=== PATIENT | male | born 1960 | race Caucasian/White ===

== ENCOUNTER 2021-06-28 22:10 | Emergency (ER) | payer MEDICARE, OTHER, SELFPAY ==
[2021-06-28 22:16] VITALS: BP 142/87; BP 161/88; PULSE 109; PULSE 90; PULSE 97; RESP 18; TEMP 36.9; O2SAT 100; O2SAT 96; BMI 28.5
--- NOTE | 2021-06-28 22:38 | ED_ITS ---
HPI - Male Genitourinary General Chief complaint: Urogenital-Male Stated complaint: BALDERAS ISSUES Time Seen by Provider: 06/28/21 22:19 Source: patient Mode of arrival: EMS History of Present Illness HPI Narrative: 60-year-old male brought in via EMS for Balderas catheter difficulties resulting in significant spasming pain in the penis and he denies any accidental holes on the catheter. Patient states that the catheter was placed last Wednesday at [facility] for hematuria and denies any history of prostatic or bladder CA. Patient denies any fever or chills, nausea or vomiting throughout the day and states that he has not seen any urine come out of the catheter since 10:00 a.m. in the morning at which time he decided to decrease his oral intake of fluids. Patient states that he has been leaking around the catheter as well. Related Data Allergies Allergy/AdvReac Type Severity Reaction Status Date / Time No Known Allergies Allergy Unverified 06/28/21 22:19 Review of Systems Review of Systems: Pertinent positives and negatives as stated in HPI 10 point review of systems is otherwise negative. PMFSH Past Medical History Source: nursing notes reviewed Social History Social History Advance Directives: No Advance Directives Information Provided: No Physical Exam Vital Signs: Vital Signs: Last Vital Signs Temp 98.4 F 06/28/21 22:16 Pulse 97 06/28/21 22:16 Resp 18 06/28/21 22:16 BP 161/88 H 06/28/21 22:16 Pulse Ox 100 06/28/21 22:16 Body Mass Index 28.5 VITAL SIGNS: Reviewed. GENERAL: Well developed, well nourished, in no acute distress. HEAD: Normocephalic/atraumatic EYES: PERRLA, EOMI OROPHARYNX: no oral lesions noted, posterior pharynx clear NECK: Supple, no adenopathy LUNGS: Normal breath sounds. No adventitious sounds or accessory muscle use. SpO2<100> CARDIOVASCULAR: Regular rate and rhythm without noted murmurs ABDOMEN: Soft, non-tender, non-distended with bowel sounds. : Balderas catheter place without urine within the tube but obvious leakage around the catheter, bladder scan significant for 179 cc. NEUROLOGIC: Alert and oriented x 4. Strength and sensation to light touch were grossly intact x 4. Course Course Course Narrative: 60-year-old male with prior history of cervical fracture and residual numbness in the perineal area but states that he is never required any use of Balderas catheter for urinary problems. Patient also endorses that he did not want the Balderas catheter to be placed, however the medical staff strongly recommended. After multiple manipulations with the bladder of the catheter and the absence of urine the decision was made to pull the catheter and at this time it was noted that the catheter was blocked with sediment material. The patient's pain immediately resolved and he has had the ability to void since removal of the catheter. Urinalysis will be conducted to ensure no evidence of urinary tract infection. Patient has an appointment with Urology on Wednesday and will follow- up with this service at that time. Review of all investigations negative for acute findings to suggest UTI and although there is hematuria noted RBCs are 30-49 and patient has been able to void on his own and has scheduled appointment follow-up on Wednesday. He is otherwise discharged home in stable condition. MDM - Male Genitourinary Lab Data Labs: Lab Results 06/28/21 Range/Units 22:48 Urine Color YELLOW Urine Appearance CLOUDY Urine pH 6.0 (5.0-8.0) Ur Specific [place] 1.025 (1.005-1.025) Urine Protein 1+ H (NEG-TRACE) MG/DL Urine Glucose (UA) NEG (NEG) MG/DL Urine Ketones NEG (NEG) MG/DL Urine Blood 3+ H (NEG) Urine Nitrite NEG (NEG) Ur Leukocyte Esterase TRACE H (NEG) Urine RBC 30-49 H (0) /HPF Urine WBC 1-4 (0-4) /HPF Ur Squamous Epith Cells TRACE /LPF Amorphous Sediment TRACE /LPF Urine Bacteria 1+ /LPF Hyaline Casts 0-2 /LPF Urine Mucus TRACE /LPF Discharge Plan Discharge Clinical Impression: Balderas catheter problem, Encounter for Balderas catheter removal Patient Disposition: Home, Self-Care Instructions: Balderas Catheter Removal (DC) Additional Instructions: 1. Resume all home medications as prescribed. 2. Keep your scheduled appointment with Urology on Wednesday. 3. Return to the emergency room should you be unable to void within 6 hours. Referrals: Juan Mancini MD [Primary Care Provider] - 2 days
[2021-06-28 22:53] LABS: Appearance Urine CLOUDY; Color Urine YELLOW; Glucose Urine UA NEG (NEG); Leukocyte Esterase Urine TRACE (NEG); Nitrite Urine NEG (NEG); Specific Gravity - Urine 1.025 (1.005-1.025); UACC Culture Trigger YES; Urine Blood 3+ (NEG); Urine Ketones NEG (NEG); Urine Protein 1+ MG/DL (NEG-TRACE)
[2021-06-28 23:01] LABS: Amorphous Sediment Urine TRACE /LPF; Bacteria Urine 1+ /LPF; Hyaline Casts Urine 0-2 /LPF; Mucus Urine TRACE /LPF; RBC Urine 30-49 /HPF (0); Squamous Epithelial Cell Urine TRACE /LPF
[2021-06-28 23:33] VITALS: BP 116/72; PULSE 81; RESP 18; TEMP 36.8; O2SAT 99
--- NOTE | 2021-06-28 23:39 | PC.NURSE ---
Pt alert and oriented x4, calm and cooperative. Thurman catheter removed by MD Rodgers, pt tolerated well. Pt discharged and educated on discharge stating understanding. Pt offered multiple option to go home and stating he can only take an ambulance home. Offered to call sister to pick him up and patient refused. Offered to call cab to take him home and patient refused stating he needs help to get into his house even though he stated he has been driving all week and is normally independent walking around at home.
== END 2021-06-29 00:14 | disposition home or self-care (01) ==
LOC: HO.ED 22:51
PROVIDERS: Emergency Provider Student in an Organized Health Care Education/Training Program; PCP Internal Medicine
DX: T83.098A Other mechanical complication of other urinary catheter, initial encounter (principal); Y84.6 Urinary catheterization as the cause of abnormal reaction of the patient, or of later complication, without mention of misadventure at the time of the procedure; Y92.9 Unspecified place or not applicable
CPT/HCPCS: 51798; 81001; 87086; 99283; 99284

== ENCOUNTER 2024-01-31 14:36 | Emergency (ER) | payer OTHER, SELFPAY ==
--- NOTE | ~2024-01-31 | CT_ITS ---
EXAMINATION: CT ABDOMEN AND PELVIS WITHOUT CONTRAST CLINICAL INFORMATION: Right-sided flank pain COMPARISON: None available. TECHNIQUE: Multidetector volumetric imaging was performed from the superior aspect of the liver through the pubic symphysis. Sagittal and coronal reformatted images were obtained on the technologist's workstation. This CT examination was performed using dose optimization techniques as appropriate, variously including the following: *Automated exposure control *Adjustment of mA and/or kV according to patient size (this includes techniques or standardized protocols for targeted exams where dose is matched to indication/reason for exam; i.e. extremities or head) *Use of iterative reconstruction technique DLP: 634 mGy-cm FINDINGS: LUNG BASES: The visualized lung bases are unremarkable. LIVER, GALLBLADDER, AND BILIARY TREE: The liver is normal in size, shape, and attenuation. No focal hepatic lesion or biliary ductal dilatation is present. The gallbladder is unremarkable with no evidence of radiopaque gallstones, gallbladder wall thickening, or obvious pericholecystic inflammatory changes. PANCREAS: Unremarkable. SPLEEN: Unremarkable. ADRENAL GLANDS: There is a small 1.3 cm nodule arising from the right adrenal gland along with some other small nodules seen in both the right and left adrenal. These measure fat density consistent with benign adenomas and need no additional imaging or follow-up. KIDNEYS AND URETERS: The kidneys are normal in size, shape, and attenuation. There is a 2 mm nonobstructing calculus seen in the upper pole of the right kidney no other calculi are seen. No hydronephrosis or hydroureter seen. No perinephric stranding. A benign right mid renal 2.9 cm Bosniak class I renal cyst is noted which requires no additional imaging or follow up. No solid renal masses are seen. BLADDER: Unremarkable. GASTROINTESTINAL TRACT: The small and large bowel are unremarkable. The appendix is unremarkable. ABDOMINAL WALL: No significant hernia is appreciated. LYMPH NODES: Normal. VASCULAR: Calcific atherosclerotic changes are present in the aorta and iliofemoral vessels. There is no evidence of an abdominal aortic aneurysm. PELVIC VISCERA: Unremarkable. OSSEOUS STRUCTURES: Unremarkable. CT/CT abdomen pelvis wo IV con IMPRESSION: 1. A cause for the patient's right-sided flank pain has not been found. 2. Incidental note made of a 2 mm nonobstructing right upper pole renal calculus, benign adrenal adenomas which need no additional imaging or follow up and a benign Bosniak class I right renal cyst which needs no additional imaging or follow up. Fleischner guidelines were followed.
[2024-01-31 14:47] VITALS: BP 101/63; PULSE 88; RESP 16; TEMP 37; O2SAT 98; BMI 28.5
--- NOTE | 2024-01-31 14:47 | ED.GENADULT ---
HPI - General Adult General Chief complaint: Urogenital-Male Stated complaint: pain r side severe Source: patient Mode of arrival: ambulatory (with a walker) Limitations: no limitations History of Present Illness ED Provider: Wen Cross PA-C HPI narrative: Patient is a 63 year old assigned male at with a history of kidney stones presenting to the emergency department today with right sided flank pain and foul smelling urine. Patient states that he began having right sided flank pain last night and noticed today that his urine was foul smelling. Patient denies any dizziness, lightheadedness, abdominal pain, nausea, vomiting, fever, chills, blurry vision, double vision, loss of vision, chest pain, difficulty breathing, shortness of breath, back pain, night sweats, pain with urination, increased urinary frequency, increased urinary urgency, blood in his urine or stool, syncope or a near syncopal episode, recent trauma or falls, bowel incontinence, bladder incontinence, or any other complaints at this time. Onset (ago): day(s) (1) Location: right (flank pain) Severity: moderate Severity scale (1-10): 6 Quality: aching Pain Consistency: constant Relieving factors: none Exacerbating factors: none Associated symptoms: denies other symptoms Treatments prior to arrival: other (Oxycodone - no relief) Related Data Allergies Allergy/AdvReac Type Severity Reaction Status Date / Time No Known Allergies Allergy Verified 01/31/24 14:50 Review of Systems Constitutional: Constitutional: Reports no additional constitutional complaints, Denies chills, Denies fever(s) and Denies night sweats Eyes: Eyes: Reports no additional eye complaints, Denies blurry vision, Denies change in vision, Denies diplopia, Denies eye discharge, Denies loss of vision and Denies eye pain ENT: Denies dizziness Cardiovascular: Cardiovascular: Reports no additional cardiovascular complaints, Denies chest pain, Denies lightheadedness, Denies Loss of Consciousness and Denies dyspnea Respiratory: Respiratory: Reports no additional respiratory complaints and Denies dyspnea Gastrointestinal: Gastrointestinal: Reports no additional gastrointestinal complaints, Denies abdominal pain, Denies melena, Denies hematochezia, Denies change in bowel habits and Denies change in stool character Genitourinary: Genitourinary: Reports no additional male genitourinary complaints, Denies hematuria, Denies oliguria, Denies difficulty urinating, Denies dysuria, Denies urinary frequency, Denies urinary hesitancy, Denies urinary incontinence and Denies urinary urgency Comments: right flank pain foul smelling urine Musculoskeletal: Musculoskeletal: Reports no additional musculoskeletal complaints, Denies numbness and Denies tingling Neurologic: Denies dizziness, Denies loss of vision, Denies numbness and Denies tingling Psychiatric: Psychiatric: Reports no additional psychiatric complaints Endocrine: Endocrine: Reports no additional endocrine complaints Hematologic/Lymphatic: Hematologic/Lymphatic: Reports no additional hematologic/lymphatic complaints Allergic/Immunologic: Allergic/Immunologic: Reports no additional allergic/immunologic complaints [facility] Past Medical History Attestation statement: The following information was validated with the patient. Source: old records reviewed and nursing notes reviewed Social History Social History Advance Directives: No Advance Directives Information Provided: No Do you have a plan to hurt others: No Plan Physical Exam ED Vital Signs: BMI result Body Mass Index 28.5 Const General: cooperative, no acute distress, alert and awake Nutritional Appearance: well nourished Orientation/consciousness: patient oriented x3 Limitations: no limitations HENMT Head: Yes normal to inspection and Yes atraumatic Ears: hearing grossly normal bilaterally and external ears normal General nose exam: Normal external nose present, no nasal discharge noted and no epistaxis Face and sinus: Yes normal facial exam, No abrasion and No laceration Mouth: Normal oral and palatal mucosa present, no drooling and no muffled voice Eyes General: appearance normal, both eyes and all related structures Periorbital: periorbital findings normal Eyelids: Yes eyelids normal Conjunctivae: conjunctivae normal Pupils: Equal, round and reactive pupils present EOM: EOMs intact bilaterally Neck Neck: Yes normal visual inspection, Yes full ROM and Yes no lymphadenopathy Chest Chest palpation & inspection: normal inspection of the chest Resp Effort & Inspection: normal respiratory effort and able to speak in complete sentences GI Inspection: Yes normal to inspection Neuro General: patient oriented x3 and moves all extremities Cranial nerves: Yes Equal, round and reactive pupils present Cognition (Neuro): normal cognition Extrem General: Yes normal to inspection, Yes full ROM and Yes capillary refill normal Psych Appearance: grossly normal Mental Status: mental status grossly normal Affect: normal affect Attitude: cooperative Thought process: Normal thought process present Thought content: Normal thought content present Insight: Good insight present (Psych) Course Course Course Narrative: RME performed by Wen Cross PA-C. Patient is a 63 year old assigned male at presenting to the emergency department with right flank pain. Patient states over the last 3 days he has had right flank pain. Detailed physical exam and review of systems are deferred to the assembler motor vehicle. Labs, imaging, and swabs ordered. Patient placed back in the waiting room pending room availability and results. Medical Decision Making Medical Decision Making MDM Narrative: Patient is a 63 year old assigned male at with a history of kidney stones presenting to the emergency department today with right flank pain and foul smelling urine. Patient's limited physical exam performed in triage was unremarkable. Patient's blood work was unremarkable. Patient did not provide a urine sample. Patient's CT abdomen/pelvis showed no acute process. Patient left the department without completing treatment. Patient left the department before myself or any of the other emergency department clinicians could explain to or review with the patient; physical exam findings, test results, need or lack there of for additional testing, need or lack there of for a procedure to be performed, need or lack there of for hospital admission / transfer, need or lack there of for prescription medication, treatment options, or a treatment plan. Differential Diagnosis Differential Diagnoses: The differential diagnosis associated with the presentation includes UTI Kidney stone Flank pain Admission/Observation Consideration of admission/observation: Escalation of care including admission/observation considered Patient would have been admitted to the hospital had he completed his work up and it had any findings where hospital admission was appropriate, his clinical presentation warranted hospital admission, had myself or any other emergency architecture department chair had the ability to discuss need or lack there of for hospital admission, and the patient hadn't left the department without completing treatment. Lab Data [facility] Lab Attestation statement: I reviewed the patient's lab results. My interpretation of these results are in the [facility] Rationale portion of this note. 01/31/24 16:33 01/31/24 16:33 Labs: Lab Results 01/31/24 Range/Units 16:33 WBC 7.7 (4.8-10.8) X10*3/uL RBC 4.24 L (4.60-5.80) X10*6/uL Hgb 12.9 L (14.0-18.0) g/dl Hct 38.7 L (42.0-52.0) % MCV 91.3 (80.0-98.0) fL MCH 30.4 (27.0-33.0) pg MCHC 33.3 (31.0-36.0) g/dl RDW 14.6 (11.0-16.0) % Plt Count 238 (160-400) X10*3/uL MPV 9.8 (9.4-12.4) fL Immature Gran % (Auto) 0.3 (0.0-0.4) % Neut % (Auto) 65.5 (45-73) % Lymph % (Auto) 25.1 (20-40) % [place] % (Auto) 6.7 (2-11) % Eos % (Auto) 1.7 (0-4) % Baso % (Auto) 0.7 (0-2) % Lymph # (Auto) 1.9 (1.2-4.9) X10*3/uL [place] # (Auto) 0.5 (0.1-1.2) X10*3/uL Eos # (Auto) 0.1 (0.0-0.4) X10*3/uL Baso # (Auto) 0.1 (0.0-0.2) X10*3/uL Abs Immat Gran (auto) 0.02 (0.00-0.03) X10*3/uL Absolute Neuts (auto) 5.0 (2.0-8.3) x10*3/uL Absolute Nucleated RBC 0.000 (0.0-0.012) X10*3/uL Nucleated RBC % (auto) 0.0 (0.0-0.2) /100WBC Sodium 141 (135-145) mmol/L Potassium 4.1 (3.3-5.1) mmol/L Chloride 107 (96-108) mmol/L Carbon Dioxide 24 (22-29) mmol/L Anion Gap 14 (12-20) BUN 15 (9-16) mg/dL Creatinine 0.86 (0.5-1.4) mg/dL Estim Creat Clear Calc 102.5 Estimated GFR > 60 Random Glucose 89 (60-115) mg/dL Calcium 9.7 (8.4-10.2) mg/dL Magnesium 2.0 (1.6-2.6) mg/dL Total Bilirubin 0.4 (0.0-1.0) mg/dL AST 19 (5-37) U/L ALT 13 (0-40) U/L Alkaline Phosphatase 85 (39-117) U/L Total Protein 7.3 (6.5-8.0) g/dL Albumin 4.1 (3.5-5.0) g/dL Influenza Type A (PCR) NEGATIVE (Negative) Influenza Type B (PCR) NEGATIVE (Negative) RSV RNA Qual (PCR) NEGATIVE (Negative) SARS-CoV-2 RNA (RT-PCR) NEGATIVE (Negative) Independent Interpretation I performed an independent interpretation of an: CT Scan Interpretation: My interpretation is in agreement with the radiologist's impression of this imaging study. EXAMINATION: CT ABDOMEN AND PELVIS WITHOUT CONTRAST CLINICAL INFORMATION: Right-sided flank pain COMPARISON: None available. TECHNIQUE: Multidetector volumetric imaging was performed from the superior aspect of the liver through the pubic symphysis. Sagittal and coronal reformatted images were obtained on the technologist's workstation. This CT examination was performed using dose optimization techniques as appropriate, variously including the following: *Automated exposure control *Adjustment of mA and/or kV according to patient size (this includes techniques or standardized protocols for targeted exams where dose is matched to indication/reason for exam; i.e. extremities or head) *Use of iterative reconstruction technique DLP: 634 mGy-cm FINDINGS: LUNG BASES: The visualized lung bases are unremarkable. LIVER, GALLBLADDER, AND BILIARY TREE: The liver is normal in size, shape, and attenuation. No focal hepatic lesion or biliary ductal dilatation is present. The gallbladder is unremarkable with no evidence of radiopaque gallstones, gallbladder wall thickening, or obvious pericholecystic inflammatory changes. PANCREAS: Unremarkable. SPLEEN: Unremarkable. ADRENAL GLANDS: There is a small 1.3 cm nodule arising from the right adrenal gland along with some other small nodules seen in both the right and left adrenal. These measure fat density consistent with benign adenomas and need no additional imaging or follow-up. KIDNEYS AND URETERS: The kidneys are normal in size, shape, and attenuation. There is a 2 mm nonobstructing calculus seen in the upper pole of the right kidney no other calculi are seen. No hydronephrosis or hydroureter seen. No perinephric stranding. A benign right mid renal 2.9 cm Bosniak class I renal cyst is noted which requires no additional imaging or follow up. No solid renal masses are seen. BLADDER: Unremarkable. GASTROINTESTINAL TRACT: The small and large bowel are unremarkable. The appendix is unremarkable. ABDOMINAL WALL: No significant hernia is appreciated. LYMPH NODES: Normal. VASCULAR: Calcific atherosclerotic changes are present in the aorta and iliofemoral vessels. There is no evidence of an abdominal aortic aneurysm. PELVIC VISCERA: Unremarkable. OSSEOUS STRUCTURES: Unremarkable. CT/CT abdomen pelvis wo IV con IMPRESSION: 1. A cause for the patient's right-sided flank pain has not been found. 2. Incidental note made of a 2 mm nonobstructing right upper pole renal calculus, benign adrenal adenomas which need no additional imaging or follow up and a benign Bosniak class I right renal cyst which needs no additional imaging or follow up. Fleischner guidelines were followed. Dictated By: Boston Robledo MD Signed By: Electronically signed by Boston Robledo MD 01/31/24 3483 Radiology Impression Discussion of test interpretation with radiology: I have reviewed the radiologist's reading. Discharge Plan Discharge Clinical Impression: Acute flank pain, Foul smelling urine Patient Disposition: Left W/O Completing Treatment Discharge Date/Time: 01/31/24 18:02
[2024-01-31 16:39] LABS: MANUAL DIFF FLAG NO
[2024-01-31 16:40] LABS: Basophils Absolute Auto 0.1 X10*3/uL (0.0-0.2); Basophils Percent Auto 0.7 % (0-2); Eosinophils Absolute Auto 0.1 X10*3/uL (0.0-0.4); Eosinophils Percent Auto 1.7 % (0-4); Hematocrit 38.7 % (42.0-52.0); Hemoglobin 12.9 g/dl (14.0-18.0); Imm Gran Abs Auto 0.02 X10*3/uL (0.00-0.03); Imm Gran Pct Auto 0.3 % (0.0-0.4); Lymphocytes Absolute Auto 1.9 X10*3/uL (1.2-4.9); Lymphocytes Percent Auto 25.1 % (20-40); Mean Corpuscular HGB Conc 33.3 g/dl (31.0-36.0); Mean Corpuscular Hemoglobin 30.4 pg (27.0-33.0); Mean Corpuscular Volume 91.3 fL (80.0-98.0); Mean Platelet Volume 9.8 fL (9.4-12.4); Monocytes Absolute Auto 0.5 X10*3/uL (0.1-1.2); Monocytes Percent Auto 6.7 % (2-11); Neutrophils Percent Auto 65.5 % (45-73); Platelet Count 238 X10*3/uL (160-400); Red Blood Count 4.24 X10*6/uL (4.60-5.80); Red Cell Distribution Width 14.6 % (11.0-16.0); White Blood Count 7.7 X10*3/uL (4.8-10.8)
[2024-01-31 16:55] LABS: Alanine Aminotransferase 13 U/L (0-40); Albumin Level 4.1 g/dL (3.5-5.0); Alkaline Phosphatase 85 U/L (39-117); Anion Gap 14 (12-20); Aspartate Amino Transferase 19 U/L (5-37); Bilirubin Total 0.4 mg/dL (0.0-1.0); Blood Urea Nitrogen 15 mg/dL (9-16); Calcium 9.7 mg/dL (8.4-10.2); Carbon Dioxide 24 mmol/L (22-29); Chloride 107 mmol/L (96-108); Creatinine Clr Calc Pharmacy 102.5; Estimated Glomerular Filt Rate > 60; Glucose Random 89 mg/dL (60-115); Potassium 4.1 mmol/L (3.3-5.1); Sodium 141 mmol/L (135-145); Total Protein 7.3 g/dL (6.5-8.0)
[2024-01-31 17:31] LABS: Influenza A PCR NEGATIVE (Negative); Influenza B PCR NEGATIVE (Negative); Resp Syncy Virus RNA Qual PCR NEGATIVE (Negative); SARS COV2 PCR INHOUSE NEGATIVE (Negative)
--- NOTE | 2024-01-31 18:00 | PC.NURSE ---
Attempted to reassess patient-- seen leaving
== END 2024-01-31 18:02 | disposition left against medical advice (07) ==
PROVIDERS: Physician Assistant Medical; Emergency Provider Emergency Medicine; PCP Physician Assistant
DX: R10.2 Pelvic and perineal pain (principal); Z79.899 Other long term (current) drug therapy; Z03.818 Encounter for observation for suspected exposure to other biological agents ruled out
CPT/HCPCS: 0241U; 36415; 74176; 80053; 83735; 85025; 99281; 99283; 99284

== ENCOUNTER 2025-02-14 15:09 | Inpatient (IN) | payer MEDICARE, SELFPAY ==
[2025-02-14] VITALS (16 sets, daily range): BP systolic 71–144; BP diastolic 41–81; PULSE 77–108; RESP 9–18; TEMP 36.4–36.9; O2SAT 96–100; BMI 27.4
--- NOTE | 2025-02-14 | ECG_ITS ---
Test Reason : syncopal, dizzy Blood Pressure : */* mmHG Vent. Rate : 96 BPM Atrial Rate : 96 BPM P-R Int : 172 ms QRS Dur : 146 ms QT Int : 414 ms P-R-T Axes : 27 5 186 degrees QTcB Int : 523 ms Normal sinus rhythm Left bundle branch block Abnormal ECG No previous ECGs available Referred By: Generic ED Physician Electronically Signed By: CARSON CERVANTES
--- NOTE | ~2025-02-14 | CT_ITS ---
CLINICAL HISTORY: SHEREE, new CT abdomen and pelvis without contrast Comparison: 01/31/2024 Findings: Lung bases clear. No acute bony abnormalities. Degenerative change spine and hips. L5-S1 anterior fusion hardware noted. Liver and spleen within normal limits. Pancreas and adrenal glands unremarkable. Gallbladder within normal limits. Small nonobstructing right renal stones. Right renal cyst also noted. No bilateral ureteral stone or hydronephrosis. No evidence for aortic aneurysm. No free fluid or adenopathy in the pelvis. No diverticulitis. Appendix unremarkable. Focal nodule anterolateral right bladder wall. Mass is not excluded, recommend cystoscopy. Impression: Small right anterolateral bladder wall nodule Possible mass, recommend cystoscopy No acute processes This document has been electronically signed by: Alejo De Los Santos MD on 02/14/2025 19:14:31
--- NOTE | ~2025-02-14 | XR_ITS ---
EXAMINATION: XR CHEST CLINICAL INFORMATION: dyspnea COMPARISON: None available. TECHNIQUE: AP view of the chest was obtained. FINDINGS: Patient is right rotated. Mild dextro positioning of the heart. The cardiac, hilar, and mediastinal contours are normal. The lungs are essentially clear bilaterally allowing for rotation. No pneumothorax or effusion. No focal osseous or soft tissue abnormality. XR/XR chest 1V IMPRESSION: 1. Rightward rotation, mildly limiting the examination. 2. No active pulmonary disease. Electronically signed by: Alireza Crowley MD 02/14/2025 04:04 PM EDT
--- NOTE | 2025-02-14 15:35 | ED.WEAKNESS ---
HPI - Weakness General Chief complaint: Weakness Stated complaint: ?Sepsis, UTI, dizzy, syncope, hypotensive, tachy Time Seen by Provider: 02/14/25 15:30 Source: patient and EMS Mode of arrival: ambulatory Limitations: no limitations History of Present Illness ED Provider: HPI Narrative: 64-year-old male I received a phone call from EMS that he had a near syncopal episode and was found to be significantly hypotensive, he was returning from MD appointment for UTI and you antibiotic for UTI that he has not dose yet, patient states because he has been having dark urine and dysuria he decided to decrease his fluid intake so he does not urinate as much, he initially did not want to come to the emergency department via EMS and I did not provide a high-risk refusal and finally they were able to convince the patient to come in. He states that for the past 3 weeks he has urine has been dark he went to see a urologist he has been worked up for a bladder cancer. Related Data Allergies Allergy/AdvReac Type Severity Reaction Status Date / Time No Known Allergies Allergy Verified 02/14/25 15:29 Review of Systems Constitutional: Constitutional: Reports as per HPI [facility] Social History Social History Smoked in Last 30 Days: No Use of substances other than those prescribed or required for medical reasons: No Advance Directives: No Advance Directives Information Provided: No Do you have a plan to hurt others: No Plan Physical Exam Vital Signs: Vital Signs: Last Vital Signs Temp 97.9 F 02/14/25 20:00 Pulse 89 02/14/25 20:00 Resp 18 02/14/25 20:00 BP 116/74 02/14/25 20:00 Pulse Ox 98 02/14/25 20:00 O2 Del Method Room Air 02/14/25 20:00 BMI result Body Mass Index 27.4 Const: Other: Gen: ?Elderly, appears older than stated age HEENT: PERRLA, EOMI, dry oral mucosa Neck: Supple CV: RRR, no obvious murmurs appreciated Resp: ?No wheezing rales rhonchi no stridor moving air well Abd: ?Bowel sounds are present, no tenderness no rebound no rigidity MSK: FROM, strength 5/5 all extremities Skin: Patient has candidal infection in the pannus of the right intra-abdominal fall Neuro: ?Alert and oriented x3, moving upper and lower extremities symmetrically, no obvious facial asymmetry noted Medications Administered Discontinued Medications Generic Name Dose Route Start Last Admin Trade Name Valentino PRN Reason Stop Dose Admin Ceftriaxone Sodium 2 gm 02/14/25 15:42 02/14/25 16:40 Ceftriaxone Sodium 2 Gm Vial IVPUSH 02/14/25 15:43 2 gm ONCE ONE Administration Sodium Chloride 2,830.41 mls @ 2,830.41 mls/hr 02/14/25 15:36 02/14/25 18:16 Ns 30 ml/kg infuse over 1 hr (2830.41 ml) 02/14/25 16:35 Infused IV Infusion .Q1H STA Medical Decision Making Medical Decision Making [facility] Narrative: 15:40 I am concerned that patient is septic, we will start off with 30 cc/kilos IV fluids, antibiotics, he is not febrile, but I will start treating him right of the bat as he is hypotensive he maybe just dehydrated, the sources likely UTI but other considerations as below 17:12 patient's blood pressure is a improving he is blood pressure is 98/53 he does have an SHEREE 2100 patient's blood pressure stable 116/74 CT scan of the abdomen negative will admit patient for SHEREE and UTI Differential Diagnosis Differential Diagnoses: The differential diagnosis associated with the presentation includes UTI, pneumonia, abdominal source of infection, pyelonephritis, prostatitis, cellulitis Admission/Observation Consideration of admission/observation: Escalation of care including admission/observation considered Lab Data [facility] Lab Attestation statement: I reviewed the patient's lab results. 02/14/25 16:06 02/14/25 16:06 Labs: Lab Results 02/14/25 02/14/25 02/14/25 Range/Units 16:06 18:21 18:53 WBC 7.1 (4.8-10.8) X10*3/uL RBC 3.77 L (4.60-5.80) X10*6/uL Hgb 11.4 L (14.0-18.0) g/dl Hct 33.9 L (42.0-52.0) % MCV 89.9 (80.0-98.0) fL MCH 30.2 (27.0-33.0) pg MCHC 33.6 (31.0-36.0) g/dl RDW 12.8 (11.0-16.0) % Plt Count 214 (160-400) X10*3/uL MPV 10.3 (9.4-12.4) fL Immature Gran % (Auto) 0.3 (0.0-0.4) % Neut % (Auto) 74.2 H (45-73) % Lymph % (Auto) 14.8 L (20-40) % [place] % (Auto) 7.2 (2-11) % Eos % (Auto) 2.5 (0-4) % Baso % (Auto) 1.0 (0-2) % Lymph # (Auto) 1.1 L (1.2-4.9) X10*3/uL [place] # (Auto) 0.5 (0.1-1.2) X10*3/uL Eos # (Auto) 0.2 (0.0-0.4) X10*3/uL Baso # (Auto) 0.1 (0.0-0.2) X10*3/uL Abs Immat Gran (auto) 0.02 (0.00-0.03) X10*3/uL Absolute Neuts (auto) 5.3 (2.0-8.3) x10*3/uL Absolute Nucleated RBC 0.000 (0.0-0.012) X10*3/uL Nucleated RBC % (auto) 0.0 (0.0-0.2) /100WBC Sodium 138 (135-145) mmol/L Potassium 4.0 (3.3-5.1) mmol/L Chloride 108 (96-108) mmol/L Carbon Dioxide 23 (22-29) mmol/L Anion Gap 11 L (12-20) BUN 22 H (9-16) mg/dL Creatinine 1.64 H (0.5-1.4) mg/dL Estim Creat Clear Calc 50.0 Estimated GFR 42 Random Glucose 136 H (60-115) mg/dL Lactic Acid 2.2 H* (0.5-2.0) mmol/L Lactic Acid F/U @ 2Hr 1.4 (0.5-2.0) mmol/L Calcium 8.8 D (8.4-10.2) mg/dL Magnesium 1.9 (1.6-2.6) mg/dL Total Bilirubin 0.3 (0.0-1.0) mg/dL AST 16 (5-37) U/L ALT 6 (0-40) U/L Alkaline Phosphatase 88 (39-117) U/L Total Creatine Kinase 13 L (38-174) U/L Total Protein 6.0 L (6.5-8.0) g/dL Albumin 3.4 L (3.5-5.0) g/dL Lipase 27 (8-78) U/L Urine Color Yellow Urine Appearance Cloudy Urine pH 5.5 (5.0-9.0) Ur Specific [place] 1.010 (1.005-1.025) Urine Protein Trace (Neg-Trace) mg/dL Urine Glucose (UA) Negative (Negative) mg/dL Urine Ketones Negative (Negative) mg/dL Urine Blood Moderate (2+) H (Negative) Urine Nitrite Negative (Negative) Ur Leukocyte Esterase Large (3+) H (Negative) Urine RBC 0-2 (0-2) /HPF Urine WBC >50 H (0-5) /HPF Ur Squamous Epith Cells 0-2 (0-2) /HPF Urine Bacteria Trace (None Seen) Hyaline Casts 3-5 (0-2) /LPF Influenza Type A (PCR) NEGATIVE (Negative) Influenza Type B (PCR) NEGATIVE (Negative) RSV RNA Qual (PCR) NEGATIVE (Negative) SARS-CoV-2 RNA (RT-PCR) NEGATIVE (Negative) Independent Interpretation I performed an independent interpretation of an: EKG (96 NSR, left bundle-branch block negative Sgarbossa criteria), Plain X-Ray (Somewhat limited study due to irritation however no obvious consolidations or pneumothorax) and CT Scan Radiology Impression Discussion of test interpretation with radiology: I have reviewed the radiologist's reading. Radiologist Impression: No acute Critical Care Time Critical Care Time Total Critical Care Time: 45 Attestation: Time is exclusive of separately billable procedures. Time includes: direct patient care, patient reassessment, coordination of patient care, interpretation of data (laboratory data, pulse oximetry, arterial blood gases and chest xrays), review of patient's medical records, medical consultation and documentation of patient care. Procedures excluded from critical care time: central intravenous line placement and electrocardiography. Discharge Plan Discharge Clinical Impression: Dehydration, SHEREE (acute kidney injury), Acute UTI Patient Disposition: Admitted As Inpatient Print Language: Sinhala
--- OUTSIDE RECORDS SUMMARY | 2025-02-14 16:10 | XMS_ITS | Patient Health Record ---
Author Organization [facility] [place] Address [address] [place] [address] Care Team Providers Care Interlocking And Signal Mechanic Name Role Phone Live FERNÁNDEZ, Juan Primary Care Provider David Cr Unavailable [phone] Reason For Referral No Information Medications Medication SIG (Take, Route, Frequency, Duration) Notes Start Date End Date Status tiZANidine HCl 4 MG 1 tablet as needed Orally every 8 hrs Active traMADol HCl 50 MG 1 tablet as needed Orally every 6 hrs Active Dantrolene Sodium 50 MG 1 capsule Orally Once a day; Duration: 30 day(s) Active Gabapentin 600 MG 1 tablet Orally Thre e times a day; Duration: 30 day(s) Active oxyCODONE-Acetaminophen 5-325 MG 1 tablet as needed Orally every 6 hrs Active Losartan Potassium 100 MG 1 tablet Orall y Once a day; Duration: 30 day(s) Active Carvedilol 12.5 MG 1 tablet with food Orally Twice a day; Duration: 30 day(s) Active Atorvastatin Calcium 40 MG 1 tablet Oral ly Once a day; Duration: 30 day(s) Active Omeprazole 20 MG 1 capsule Orally Onc e a day; Duration: 30 day(s) Active Zolpidem Tartrate 10 MG 1 tablet at bedt mike as needed Orally Once a day Active Amitriptyline HCl 25 MG 1 tablet at bedt mike Orally Once a day; Duration: 30 day(s) Active Problems Problem Type SNOMED Code ICD Code Onset Dates Problem Status W/U Status Risk Notes Problem Disorder of joint of ankle and/or foot (224894231) Arthritis - Degenerative (719.97) Active confirmed Problem Hammer toe (778409836) Hammer toe (735.4) Active confirmed Problem Congenital pes planus (50156843) Flat Foot, Congenital (754.61) Active confirmed Problem Pain in limb (25551730) Pain in Limb (729.5) Active confirmed Problem Abnormal gait (19636005) Abnormality of gait (781.2) Active confirmed Problem Acquired deformity of ankle AND/OR foot (43839750) Drop foot (736.79) Active confirmed Plan Of Treatment Pending Test Test Name Order Date X ray : Foot, left 2V 01/04/2013 Insurance Providers Payer Name Payer Address Payer Phone Subscriber Number Group Number Insured Name Patient Relationship to Insured Coverage Start Date Coverage End Date Medicare [employer] [address] [place] [address] [id number] Simeon Mendoza Self - patient is the insured Medical (General) History Medical History History ICD Code back, hip, knee pain headaches/migraines broken neck Surgical History Surgery Date(Month/Year) back surgery 2010
--- OUTSIDE RECORDS SUMMARY | 2025-02-14 16:10 | XMS_ITS | Clinical Summary ---
Author Organization [facility] Address [address] [place] [address] Phone Care Team Providers Care Optometry Teacher Name Role Phone Maru Almonte Primary Care Provider [phone] Allergies No known active allergies Medications zolpidem (AMBIEN) 10 mg tablet Take 1 tablet (10 mg total) by mouth at bedtime as needed. 05/18/2014 Active amitriptyline (ELAVIL) 25 mg tablet Take 2 tablets (50 mg total) by mouth at bedtime. 12/06/2014 Active atorvastatin (LIPITOR) 20 mg tablet Take 1 tablet (20 mg total) by mouth 1 (one) time each day. 03/25/2022 Active valsartan (DIOVAN) 160 mg tablet Take 1 tablet (160 mg total) by mouth 1 (one) time each day before dinner. Active oxyCODONE (ROXICODONE) 10 mg immediate release tablet Take 1 tablet (10 mg total) by mouth every 6 (six) hours if needed. 01/16/2016 Active traMADoL (ULTRAM) 50 mg tablet Take 1 tablet (50 mg total) by mouth every 6 (six) hours if needed. 01/16/2016 Active dantrolene (DANTRIUM) 50 mg capsule Take 50 mg by mouth 4 (four) times a day. 09/27/2006 Active tiZANidine (ZANAFLEX) 4 mg capsule Take 0.5 capsules by mouth 4 (four) times a day. 08/11/2010 Active pregabalin (LYRICA) 75 mg capsule Take 1 capsule (75 mg total) by mouth 2 (two) times a day. Active gabapentin (NEURONTIN) 600 mg tablet Take 2 tablets (1,200 mg total) by mouth 3 (three) times a day. Active famotidine (PEPCID) 20 mg tablet Take 1 tablet (20 mg total) by mouth 2 (two) times a day. Active Active Problems No known active problems Encounters Date Type Department Care Team Description 11/29/2024 12:16 PM EDT Anesthesia Event [facility] OR [address] [place] [phone] Geo Kessler MD Pierce, Trudy A, ADAN 11/29/2024 12:00 PM EDT - 11/29/2024 1:30 PM EDT Surgery [facility] OR [address] [place] [phone] Louis Ya MD CYSTOSCOPY TUR BLADDER TUMOR [[id number] (CPT )] 11/29/2024 10:44 AM EDT - 11/29/2024 3:46 PM EDT Hospital Encounter [facility] [place] [address] [place] [phone] Louis Ya MD Malignant neoplasm of bladder, unspecified ([facility] V24, [facility] V28) Discharge Disposition: Home or Self Care from Last 3 Months Immunizations Name Administration Dates Next Due Pfizer SARS-CoV-2 COVID-19, mRNA, LNP-S, preservative free 07/21/2021,11/13/2020 Surgical History Surgery Date Site/Laterality Comments BLADDER SURGERY EYE SURGERY HERNIA REPAIR x 4 COLONOSCOPY KIDNEY STONE SURGERY CYSTOSCOPY SPINAL FUSION ANTERIOR CERVICAL DISCECTOMY W/ FUSION Medical History Medical History Date Comments Hyperlipidemia Hypertension Anxiety Arthritis Hard to intubate GERD (gastroesophageal reflux disease) Chronic kidney disease Kidney stones CHF (congestive heart failure) ([facility] V24, [facility] V28) Cancer ([facility] V24, [facility] V28) Social History Tobacco Use Types Packs/Day Years Used Date Smoking Tobacco: Never Smokeless Tobacco: Never Tobacco Cessation:Counseling Given: Not Answered Alcohol Use Standard Drinks/Week Comments Never 0 (1 standard drink = 0.6 oz pur e alcohol) Interpersonal Safety Answer Date Record ed Physical Abuse 11/29/2024 Verbal Abuse 11/29/2024 Sex and Gender Information Value Date Recorded Sex Assigned at Male 11/27/2024 2:46 PM EDT Legal Sex Male 12:15 PM EST Gender Identity Not on file Sexual Orientation Not on file Obstetrics History Last Filed Vital Signs Vital Sign Reading Time Taken Comments Blood Pressure 120/53 11/29/2024 2:14 PM EDT Pulse 74 11/29/2024 2:14 PM EDT Temperature 36.7 C (98 F) 11/29/2024 2:14 PM EDT Respiratory Rate 18 11/29/2024 2:14 PM EDT Oxygen Saturation 100% 11/29/2024 2:14 PM EDT Inhaled Oxygen Concentration - - Weight 93.4 kg (206 lb) 11/29/2024 11:06 AM EDT Height 182.9 cm (6') 11/29/2024 11:06 AM EDT Body Mass Index 27.94 11/29/2024 11:06 AM EDT Plan of Treatment Health Maintenance Due Date Last Done Comments Zoster Vaccines (1 of 2) 1977 Pneumococcal Vaccine: 50+ Years (2 of 2 - PCV) 02/25/2013 02/26/2012 Cholesterol Screening (Lipid Panel) 06/30/2022 Colorectal Cancer Screening: Colonoscopy 06/30/2022 Depression Screening 06/30/2022 Hepatitis C Screening 06/30/2022 Medicare Annual Wellness Visit 06/30/2022 Social Influencers of Health Screening 06/30/2022 COVID-19 Vaccine ( season) 2024 07/21/2021, 11/27/2020, 11/13/2020 Hypertension/CHF/CAD Annual BMP Blood Test 07/12/2024 Influenza Vaccine (#1) 2025 , 08/16/2019, 04/20/2018, Additional history exists Falls Risk Assessment 11/29/2025 11/29/2024 DTaP,Tdap,and Td Vaccines (3 - Td or Tdap) 01/15/2026 01/16/2016, 07/20/2015 RSV Immunization Adult Patients (1 - 1-dose 75+ series) 2033 HIB Vaccines Aged Out No longer eligi ble based on patient's age to complete this topic HPV Vaccines Aged Out No longer eligi ble based on patient's age to complete this topic Hepatitis A Vaccines Aged Out No long er eligible based on patient's age to complete this topic Hepatitis B Vaccines Aged Out No long er eligible based on patient's age to complete this topic IPV Vaccines Aged Out No longer eligi ble based on patient's age to complete this topic MMR Vaccines Aged Out No longer eligi ble based on patient's age to complete this topic Meningococcal ACWY Vaccine Aged Out N o longer eligible based on patient's age to complete this topic Meningococcal B Vaccine Aged Out No l onger eligible based on patient's age to complete this topic RSV Immunization Patients Under 20 months Aged Out No longer eligible based on patient's age to complete this topic Varicella Vaccines Aged Out No longer eligible based on patient's age to complete this topic Procedures Procedure Name Priority Date/Time Associated Diagnosis Comments TISSUE EXAM Routine 11/29/2024 12:43 PM EDT Malignant neoplasm of bladder, unspecified (CMS/HCC V24, CMS/HCC V28) TH AN LMA(NO CHARGE) Routine 11/29/2024 12:33 PM EDT [place] CYSTO W FULGURATION/RESECTI ON SMALL BLADDER TUMOR 0.5-2.0CM 11/29/2024 12:13 PM EDT Malignant neoplasm of bladder, unspecified (CMS/HCC V24, CMS/HCC V28) ECG 12-LEAD Routine 11/29/2024 11:57 AM EDT from Last 3 Months Results * Tissue exam (11/29/2024 12:43 PM EDT) Final Diagnosis A. Urinary Bladder, posterior wall-biopsy: -ACUTE AND CHRONIC CYSTITIS, EXTENSIVELY DENUDED B. Urinary Bladder, tumor-transureth ral resection: -PAPILLARY UROTHELIAL CARCINOMA, LOW GRADE -Invasion: Not identified -No muscularis propria, (Detrusor muscle) present for evaluation -Lymphovascular invasion: Not identified -Urothelial carcinoma in situ: Not identified C. Urinary Bladder, deep bx-biopsy: -UROTHELIAL FRAGMENT DISTORTED BY DIATHERMY ARTIFACT, NOT INTERPRETABLE -Additional tissue sampling is recommended, as clinically indicated 12/01/2024 8:05 AM [facility] Comment A) While no neoplasm is observed in this specimen, denudation may sometimes reflect cases of CIS where the neoplastic cells have shed as a result of discohesion. Additional tissue and/or cytology sampling may be helpful, if clinically indicated. 12/01/2024 8:05 AM [facility] Gross Description A. Urinary Bladder, posterior wall: Labeled posterior bladder ID 1 . Received in formalin, with Telfa is a soft, santamaria, thin, 0.15 cm in greatest diameter tissue fragment which is wrapped in paper and submitted in toto in one cassette, one piece, multiple levels. B. Urinary Bladder, tumor: Labeled bladder t ID 2 . Received in formalin, some of which is on Telfa, is a 1.2 x 0.9 x 0.15 cm aggregate of soft to friable, santamaria-pink to red minimally cauterized tissue fragments, which are wrapped in paper and submitted in toto in one cassette, multiple pieces. C. Urinary Bladder, deep bx: Labeled deep bladder ID 3 . Received in formalin, with Telfa, is a soft, santamaria, thin, 0.2 cm in greatest diameter tissue fragment which is wrapped in paper and submitted in toto in one cassette, one piece, multiple levels. TS 12/01/2024 8:05 AM [facility] Disclaimer Unless otherwise specified, all tissue is 10% NB formalin fixed and paraffin embedded. 12/01/2024 8:05 AM [facility] Tissue Urinary bladder structure / Unknown 11/29/2024 12:43 PM EDT 11/29/2024 1:50 PM EDT Tissue specimen (specimen) Urinary bladder structure / Unknown 11/29/2024 12:59 PM EDT 11/29/2024 1:50 PM EDT Tissue specimen (specimen) Urinary bladder structure / Unknown 11/29/2024 1:05 PM EDT 11/29/2024 1:50 PM EDT Louis Ya MD LAB PATHOLOGY ORDERABLES Final R esult SHANNA KNOWLES [place] ([facility] [address] [place] [address], * TH AN LMA(NO CHARGE) (11/29/2024 12:33 PM EDT) Narrative Marilee Coelho CRNA - 11/29/2024 12:33 PM EDT Marilee Coelho CRNA 11/29/2024 12:35 PM General Information and Staff Patient location during procedure: OR Performed by: Marilee Coelho CRNA Authorized by: Geo Kessler MD Intubation Additional Comments Gauze bite block. Placement required flexing of tip via digital manipulation. Airway not difficult Urgency: elective Final Airway Details LMA Size: 4 LMA Type: LMA Seal Pressure: Final airway type: LMA Indications and Patient Condition Indications for airway management: anesthesia Spontaneous ventilation: present Preoxygenated: yes Soft Tissue Damage: No Dentition Unchanged: Yes Patient position: hob slightly elevated. Head / pt comfort. Mask difficulty assessment: 1 - vent by mask us Geo Kessler MD ANESTHESIA ORDERABLES Final Re sult * EKG 12 lead (11/29/2024 11:57 AM EDT) Ventricular Rate ECG 79 BPM GEMUSE Atrial Rate 79 BPM GEMUSE P-R Interval 184 ms GEMUSE QRS Duration 158 ms GEMUSE Q-T Interval 414 ms GEMUSE QTc 474 ms GEMUSE P Wave Martinez 32 degrees GEMUSE R Martinez 1 degrees GEMUSE T Martinez 163 degrees GEMUSE ECG Interpretation Normal sinus rhythm Left bundle branch block Abnormal ECG When compared with ECG of 17-SEP-2021 09:53, No significant change was found Confirmed by Hermann ROMERO JAMES ([id number]) on 11/29/2024 4:48:32 PM GEMUSE 11/29/2024 11:5 7 AM EDT 11/29/2024 4:48 PM EDT us Louis Ya MD ECG ORDERABLES Final Result Performing Organization Address City/[facility]/ZIP Co de Phone Number GEMUSE from Last 3 Months Insurance [employer] MED[employer]ARE [employer]AGE Care Teams Optometry Teacher Relationship Specialty Start Date End Date Maru Almonte PA [address] [place] [phone] PCP - General 11/27/24
[2025-02-14 16:15] LABS: MANUAL DIFF FLAG NO
[2025-02-14 16:25] LABS: Hematocrit 33.9 % (42.0-52.0); Hemoglobin 11.4 g/dl (14.0-18.0); Imm Gran Abs Auto 0.02 X10*3/uL (0.00-0.03); Imm Gran Pct Auto 0.3 % (0.0-0.4); Lymphocytes Absolute Auto 1.1 X10*3/uL (1.2-4.9); Mean Corpuscular HGB Conc 33.6 g/dl (31.0-36.0); Mean Corpuscular Hemoglobin 30.2 pg (27.0-33.0); Mean Corpuscular Volume 89.9 fL (80.0-98.0); NRBC Abs Auto 0.000 X10*3/uL (0.0-0.012); NRBC Pct Auto 0.0 /100WBC (0.0-0.2); Platelet Count 214 X10*3/uL (160-400); Red Blood Count 3.77 X10*6/uL (4.60-5.80); White Blood Count 7.1 X10*3/uL (4.8-10.8)
[2025-02-14] MEDS: SODIUM CHLORIDE 2830.41 ML IV (16:32)
[2025-02-14 16:34] LABS: Alanine Aminotransferase 6 U/L (0-40); Albumin Level 3.4 g/dL (3.5-5.0); Alkaline Phosphatase 88 U/L (39-117); Anion Gap 11 (12-20); Aspartate Amino Transferase 16 U/L (5-37); Blood Urea Nitrogen 22 mg/dL (9-16); Calcium 8.8 mg/dL (8.4-10.2); Carbon Dioxide 23 mmol/L (22-29); Chloride 108 mmol/L (96-108); Creatinine Clr Calc Pharmacy 50.0; Estimated Glomerular Filt Rate 42; Lipase 27 U/L (8-78); Magnesium 1.9 mg/dL (1.6-2.6); Potassium 4.0 mmol/L (3.3-5.1); Sodium 138 mmol/L (135-145); Total Protein 6.0 g/dL (6.5-8.0)
--- NOTE | 2025-02-14 16:45 | PC.NURSE ---
Pt arrives to ED as possible sepsis alert. Pt A&Ox3, afebrile, with noted hypotension, heart rate WNL. Blood cultures not initially entered by provider. Verbal review of orders with provider for clarification; at this time verbal orders received to enter blood culture orders. First set of cultures sent down and Abx given immediately after. Second blood culture set to be drawn and sent for processing.
[2025-02-14 17:06] LABS: Resp Syncy Virus RNA Qual PCR NEGATIVE (Negative); SARS COV2 PCR INHOUSE NEGATIVE (Negative)
[2025-02-14 18:14] LABS: Reflex Lactate? Lactic Acid Added
--- NOTE | 2025-02-14 18:35 | MHC.EDTECH ---
attempted to do repeat Lactic patient is not in the room at the moment
[2025-02-14 18:51] LABS: Appearance Urine Cloudy; Glucose Urine UA Negative (Negative); PH 5.5 (5.0-9.0); Specific Gravity - Urine 1.010 (1.005-1.025); UMIC TRIGGER UACC YES
--- NOTE | 2025-02-14 19:04 | PC.NURSE ---
Sepsis worksheet completed and submitted to community relations coordinator.
[2025-02-14 19:15] LABS: ~Lactic Acid-LAB USE ONLY 1.4 mmol/L (0.5-2.0)
--- NOTE | 2025-02-14 19:22 | PC.NURSE ---
this rn assumed care of pt, pt resting in stretcher, no acute distress noted
[2025-02-14 20:47] LABS: UACC Culture Trigger YES
--- NOTE | 2025-02-14 22:06 | PM.IMHP ---
History of Present Illness Date of Service: 02/14/25 Chief Complaint: weakness This is a 64-year-old male with pertinent history of hypertension, BPH, gastroesophageal reflux disease, bladder mass, peripheral neuropathy who was brought to the emergency department for evaluation of hypotension and weakness. Patient was returning from his MD appointment for evaluation of UTI. He hasnt began outpatient treatment yet for UTI. He was found to be weak and hypotensive and he was called in to the ER. Patient does endorse dysuria and change in color of urine over the last few days. He decreased his fluid intake due to dysuria. No fever, chills, nausea or vomiting. Patient does have a known bladder mass and follows outpatient with the Urology. No chest pain, palpitations, shortness of breath, changes in bowel habits. In the emergency department, patient was found to have SHEREE with creatinine 1.64. Lactic acid 2.2. Urine concerning for UTI. Review of Systems Constitutional: Constitutional: Reports fatigue, Reports malaise, Reports poor appetite and Reports weakness Cardiovascular: Cardiovascular: Reports no additional cardiovascular complaints Respiratory: Respiratory: Reports no additional respiratory complaints Gastrointestinal: Gastrointestinal: Reports no additional gastrointestinal complaints Genitourinary: Genitourinary: Reports dysuria Neurologic: Reports weakness Endocrine: Endocrine: Reports fatigue PMFSH Social History Smoked in Last 30 Days: No Use of substances other than those prescribed or required for medical reasons: No Advance Directives: No Advance Directives Information Provided: No Do you have a plan to hurt others: No Plan Meds Allergies Allergy/AdvReac Type Severity Reaction Status Date / Time No Known Allergies Allergy Verified 02/14/25 15:29 Home Medications ?Medication ?Instructions ?Recorded ?Confirmed ?Last Taken ?Type amitriptyline 25 mg tablet 50 mg PO BEDTIME 02/14/25 02/14/25 02/13/25 History dantrolene 50 mg capsule 50 mg PO QID 02/14/25 02/14/25 02/14/25 History famotidine 40 mg tablet 40 mg PO BID 02/14/25 02/14/25 02/14/25 History gabapentin 600 mg tablet 1,200 mg PO TID 02/14/25 02/14/25 02/14/25 History oxycodone 10 mg tablet 10 mg PO TID PRN Pain 02/14/25 02/14/25 Unknown History pregabalin 75 mg capsule 75 mg PO BID 02/14/25 02/14/25 02/14/25 History sumatriptan succinate 100 mg tablet 100 mg PO DAILY PRN migraine 02/14/25 02/14/25 Unknown History tamsulosin 0.4 mg capsule 0.4 mg PO BEDTIME 02/14/25 02/14/25 02/13/25 History tizanidine 4 mg tablet 6 mg PO QID 02/14/25 02/14/25 02/14/25 History tramadol 50 mg tablet 50 mg PO QID PRN Pain 02/14/25 02/14/25 Unknown History valsartan 160 mg tablet 160 mg PO DAILY 02/14/25 02/14/25 02/14/25 History zolpidem 10 mg tablet 10 mg PO BEDTIME 02/14/25 02/14/25 02/13/25 History Physical Exam Vital Signs and Narrative: Vital Signs: Last Vital Signs Temp 97.9 F 02/14/25 20:00 Pulse 77 02/14/25 21:24 Resp 10 L 02/14/25 21:24 BP 134/64 02/14/25 21:24 Pulse Ox 98 02/14/25 21:24 O2 Del Method Room Air 02/14/25 20:08 BMI result Body Mass Index 27.4 Middle-aged male lying in bed in no distress Neck supple, no JVD Regular rate and rhythm, S1-S2 heard Regular breath sounds bilaterally, no wheezing or crackles appreciated Abdomen soft nontender, no guarding, no rigidity Patient is awake, alert and oriented to self, place, time and person ; no focal motor deficit Psych: Normal mood Candidal infection in the abdominal fold Results Labs 02/14/25 16:06 02/14/25 16:06 Labs: Laboratory Results - last 24 hr 02/14/25 02/14/25 02/14/25 16:06 18:21 18:53 MCV 89.9 MCH 30.2 MCHC 33.6 RDW 12.8 Plt Count 214 MPV 10.3 Immature Gran % (Auto) 0.3 Neut % (Auto) 74.2 H Lymph % (Auto) 14.8 L [place] % (Auto) 7.2 Eos % (Auto) 2.5 Baso % (Auto) 1.0 Lymph # (Auto) 1.1 L [place] # (Auto) 0.5 Eos # (Auto) 0.2 Baso # (Auto) 0.1 Abs Immat Gran (auto) 0.02 Absolute Neuts (auto) 5.3 Absolute Nucleated RBC 0.000 Nucleated RBC % (auto) 0.0 Anion Gap 11 L Estim Creat Clear Calc 50.0 Estimated GFR 42 Random Glucose 136 H Lactic Acid 2.2 H* Lactic Acid F/U @ 2Hr 1.4 Calcium 8.8 D Magnesium 1.9 Total Bilirubin 0.3 AST 16 ALT 6 Alkaline Phosphatase 88 Total Creatine Kinase 13 L Total Protein 6.0 L Albumin 3.4 L Lipase 27 Urine Color Yellow Urine Appearance Cloudy Urine pH 5.5 Ur Specific [place] 1.010 Urine Protein Trace Urine Glucose (UA) Negative Urine Ketones Negative Urine Blood Moderate (2+) H Urine Nitrite Negative Ur Leukocyte Esterase Large (3+) H Urine RBC 0-2 Urine WBC >50 H Ur Squamous Epith Cells 0-2 Urine Bacteria Trace Hyaline Casts 3-5 Influenza Type A (PCR) NEGATIVE Influenza Type B (PCR) NEGATIVE RSV RNA Qual (PCR) NEGATIVE SARS-CoV-2 RNA (RT-PCR) NEGATIVE Imaging Radiologist's Impressions: Impressions Chest X-Ray 02/14/25 14:44 IMPRESSION: 1. Rightward rotation, mildly limiting the examination. 2. No active pulmonary disease. Electronically signed by: Alireza Crowley MD 02/14/2025 04:04 PM EDT RP Assessment and Plan (1) Acute UTI: Status: Acute (2) SHEREE (acute kidney injury): Status: Acute Plan This is a 64-year-old male with pertinent history of hypertension, BPH, gastroesophageal reflux disease, bladder mass, peripheral neuropathy who was brought to the emergency department for evaluation of hypotension and weakness. #. Acute kidney injury stage I: Monitor creatinine urine output with crystalloid resuscitation. Avoid nephrotoxins #. Acute UTI: Initiating IV ceftriaxone while in the hospital. Follow urine culture #. Intertrigo in the abdominal folds: Ordered nystatin topically #. Hypertension: Hold valsartan in the setting of SHEREE #. Gastroesophageal reflux disease: On PPI #. Lactic acidosis due to hypoperfusion, not severe sepsis #. Bladder mass: Patient follows outpatient with urologist and is currently being worked up for bladder cancer Med rec pending DVT prophylaxis: Lovenox DNR/DNI. Discussed with patient at bedside Admit as inpatient and will require two night minimum hospital stay for close monitoring of kidney function, IV antibiotics (as above), which is not possible in a lesser acute setting. Quality Stroke Does the patient have a stroke diagnosis?: No VTE Prior VTE?: No VTE Risk Level:: Medical - moderate - high VTE Device Contraindication: N/A - Device Ordered VTE Drug Contraindication: N/A - Med Ordered
--- NOTE | 2025-02-14 22:09 | PHA.MEDREC ---
Addendum entered by Rodolfo Childs [facility] 02/14/25 22:52: MED REC CHECKED BY [facility] Original Note: Pharmacy Consult ? Medication Reconciliation Pharmacy has completed the medication reconciliation. Spoke to patient to confirm med list. Patient was able to say yes or no when asked on medications. Patient states he no longer takes Cephalexin 500 mg. Patient had all his morning medications today.
--- NOTE | 2025-02-14 22:30 | PC.NURSE ---
pt medicated per sep, pharmacy contacted to bring up nystatin powder
[2025-02-14] MEDS: oxyCODONE HCl Immed Release 5 MG TABLET 10 MG PO (22:52)
--- NOTE | 2025-02-14 22:54 | PC.NURSE ---
pt medicated per sep, nystatin placed into pt specific bin by this rn
[2025-02-15 00:25] VITALS: BP 148/73; PULSE 83; RESP 16; TEMP 36.8; O2SAT 96
[2025-02-15 05:07] LABS: MANUAL DIFF FLAG NO
[2025-02-15 05:11] LABS: Hematocrit 32.9 % (42.0-52.0); Hemoglobin 11.3 g/dl (14.0-18.0); Imm Gran Abs Auto 0.01 X10*3/uL (0.00-0.03); Imm Gran Pct Auto 0.2 % (0.0-0.4); Lymphocytes Absolute Auto 1.3 X10*3/uL (1.2-4.9); Mean Corpuscular HGB Conc 34.3 g/dl (31.0-36.0); Mean Corpuscular Hemoglobin 30.2 pg (27.0-33.0); Mean Corpuscular Volume 88.0 fL (80.0-98.0); NRBC Abs Auto 0.000 X10*3/uL (0.0-0.012); NRBC Pct Auto 0.0 /100WBC (0.0-0.2); Platelet Count 205 X10*3/uL (160-400); Red Blood Count 3.74 X10*6/uL (4.60-5.80); White Blood Count 6.2 X10*3/uL (4.8-10.8)
[2025-02-15 05:26] LABS: Anion Gap 12 (12-20); Blood Urea Nitrogen 20 mg/dL (9-16); Calcium 8.5 mg/dL (8.4-10.2); Carbon Dioxide 21 mmol/L (22-29); Chloride 112 mmol/L (96-108); Creatinine Clr Calc Pharmacy 68.4; Estimated Glomerular Filt Rate > 60; Potassium 3.7 mmol/L (3.3-5.1); Sodium 141 mmol/L (135-145)
[2025-02-15 06:13] VITALS: BP 126/71; PULSE 95; RESP 11; TEMP 37; O2SAT 96
--- NOTE | 2025-02-15 06:29 | PC.NURSE ---
pt medicated per MAR
[2025-02-15] MEDS: 0.9 % Sodium Chloride Flush 3 ML SYRINGE IVFLUSH (08:01)
--- NOTE | 2025-02-15 08:03 | PC.NURSE ---
patient a&ox3, rr equal/non labored, lungs duminished clear. playground monitor sinus tach on monitor. pt has walker at baseline at home. pt has nystatin ointment to rt groin area- pt stating to home caregiver that hes not getting any of his meds in the hospital and he wishes to discharge to home because he hates being in the hospital. call mensah within reach, plan of care ongoing
--- NOTE | 2025-02-15 09:36 | P.DS_ITS ---
DS: Providers Provider Date of Service: 02/15/25 Date of admission: 02/14/25 21:44 Date of discharge: 02/15/25 Primary care physician: Unknown Physician DS: Diagnosis Discharge Diagnosis (1) Acute UTI: Status: Acute (2) SHEREE (acute kidney injury): Status: Acute DS: Summary Hospital Course Hospital Course: from initial hpi: 64-year-old male with pertinent history of hypertension, BPH, gastroesophageal reflux disease, bladder mass, peripheral neuropathy who was brought to the emergency department for evaluation of hypotension and weakness. Patient was returning from his MD appointment for evaluation of UTI. He hasnt began outpatient treatment yet for UTI. He was found to be weak and hypotensive and he was called in to the ER. Patient does endorse dysuria and change in color of urine over the last few days. He decreased his fluid intake due to dysuria. No fever, chills, nausea or vomiting. Patient does have a known bladder mass and follows outpatient with the Urology. No chest pain, palpitations, shortness of breath, changes in bowel habits. In the emergency department, patient was found to have SHEREE with creatinine 1.64. Lactic acid 2.2. Urine concerning for UTI. hospital course: Patient was admitted for acute kidney injury due to dehydration and hypotension. Valsartan was held, was given IV fluids and creatinine significantly improved. Hypotension resolved with IV fluids. Blood pressure is 126/71 at time of discharge. We will continue to hold valsartan for now but may need to restart if blood pressures increase at home. For acute UTI was treated with ceftriaxon e. Urine culture still pending. Ideally patient would stay inpatient on IV antibiotics with blood pressure monitoring until cultures resulted, however, patient is not interested in staying in the hospital would like to be given empiric treatment and follow up with PCP. For his bladder mass he will follow up with Urology. For acute lactic acidosis this was due to dehydration and hypotension, not sepsis. Time Attestation Discharge Coordination Time (in mins): 32 Quality: Safe Use of Opioids Does Pt have an Active Cancer Diagnosis on the Problem List?: Yes Opioid Measure Date for [facility] Report: 01/16/25 Opioid Measure Time for [facility] Report: 09:36 Quality: Stroke Does the patient have a stroke diagnosis?: No Physical Exam Vital Signs: Vital Signs: Last Vital Signs Temp 98.6 F 02/15/25 06:13 Pulse 95 02/15/25 06:13 Resp 11 L 02/15/25 06:13 BP 126/71 02/15/25 06:13 Pulse Ox 96 02/15/25 06:13 O2 Del Method Room Air 02/15/25 06:13 BMI result Body Mass Index 27.4 General: AO X 3, no acute distress Resp: CTA bilateral, no accessory muscles used CVS: S1,S2,RRR GI: soft, non tender, non distended Neuro: motor grossly intact, alert Psych: appropriate affect, appropriate insight DS: Data Data Completed and Pending Labs on day of discharge: Laboratory Results - last 24 hr 02/14/25 02/14/25 02/14/25 16:06 18:21 18:53 WBC 7.1 RBC 3.77 L Hgb 11.4 L Hct 33.9 L MCV 89.9 MCH 30.2 MCHC 33.6 RDW 12.8 Plt Count 214 MPV 10.3 Immature Gran % (Auto) 0.3 Neut % (Auto) 74.2 H Lymph % (Auto) 14.8 L [place] % (Auto) 7.2 Eos % (Auto) 2.5 Baso % (Auto) 1.0 Lymph # (Auto) 1.1 L [place] # (Auto) 0.5 Eos # (Auto) 0.2 Baso # (Auto) 0.1 Abs Immat Gran (auto) 0.02 Absolute Neuts (auto) 5.3 Absolute Nucleated RBC 0.000 Nucleated RBC % (auto) 0.0 Sodium 138 Potassium 4.0 Chloride 108 Carbon Dioxide 23 Anion Gap 11 L BUN 22 H Creatinine 1.64 H Estim Creat Clear Calc 50.0 Estimated GFR 42 Random Glucose 136 H Lactic Acid 2.2 H* Lactic Acid F/U @ 2Hr 1.4 Calcium 8.8 D Magnesium 1.9 Total Bilirubin 0.3 AST 16 ALT 6 Alkaline Phosphatase 88 Total Creatine Kinase 13 L Total Protein 6.0 L Albumin 3.4 L Lipase 27 Urine Color Yellow Urine Appearance Cloudy Urine pH 5.5 Ur Specific [place] 1.010 Urine Protein Trace Urine Glucose (UA) Negative Urine Ketones Negative Urine Blood Moderate (2+) H Urine Nitrite Negative Ur Leukocyte Esterase Large (3+) H Urine RBC 0-2 Urine WBC >50 H Ur Squamous Epith Cells 0-2 Urine Bacteria Trace Hyaline Casts 3-5 Influenza Type A (PCR) NEGATIVE Influenza Type B (PCR) NEGATIVE RSV RNA Qual (PCR) NEGATIVE SARS-CoV-2 RNA (RT-PCR) NEGATIVE 02/15/25 04:29 WBC 6.2 RBC 3.74 L Hgb 11.3 L Hct 32.9 L MCV 88.0 MCH 30.2 MCHC 34.3 RDW 12.6 Plt Count 205 MPV 10.4 Immature Gran % (Auto) 0.2 Neut % (Auto) 68.8 Lymph % (Auto) 21.5 [place] % (Auto) 5.9 Eos % (Auto) 3.0 Baso % (Auto) 0.6 Lymph # (Auto) 1.3 [place] # (Auto) 0.4 Eos # (Auto) 0.2 Baso # (Auto) 0.0 Abs Immat Gran (auto) 0.01 Absolute Neuts (auto) 4.3 Absolute Nucleated RBC 0.000 Nucleated RBC % (auto) 0.0 Sodium 141 Potassium 3.7 Chloride 112 H Carbon Dioxide 21 L Anion Gap 12 BUN 20 H Creatinine 1.20 Estim Creat Clear Calc 68.4 Estimated GFR > 60 Random Glucose 83 Lactic Acid Lactic Acid F/U @ 2Hr Calcium 8.5 Magnesium Total Bilirubin AST ALT Alkaline Phosphatase Total Creatine Kinase Total Protein Albumin Lipase Urine Color Urine Appearance Urine pH Ur Specific [place] Urine Protein Urine Glucose (UA) Urine Ketones Urine Blood Urine Nitrite Ur Leukocyte Esterase Urine RBC Urine WBC Ur Squamous Epith Cells Urine Bacteria Hyaline Casts Influenza Type A (PCR) Influenza Type B (PCR) RSV RNA Qual (PCR) SARS-CoV-2 RNA (RT-PCR) Discharge Plan Discharge Anticipated Discharge Date/Time: 02/15/25 09:33 Patient Disposition: Home, Self-Care Discharge Diagnosis: sheree, uti Referrals: Physician,Unknown J [Primary Care Provider, Medical] - 1 Week Discharge Medications: New cefuroxime axetil 500 mg tablet 500 mg PO BID Qty: 10 0RF Continued gabapentin 600 mg tablet 1,200 mg PO TID tizanidine 4 mg tablet 6 mg PO QID sumatriptan succinate 100 mg tablet 100 mg PO DAILY PRN (Reason: migraine) famotidine 40 mg tablet 40 mg PO BID dantrolene 50 mg capsule 50 mg PO QID tramadol 50 mg tablet 50 mg PO QID PRN (Reason: Pain) amitriptyline 25 mg tablet 50 mg PO BEDTIME tamsulosin 0.4 mg capsule 0.4 mg PO BEDTIME zolpidem 10 mg tablet 10 mg PO BEDTIME pregabalin 75 mg capsule 75 mg PO BID oxycodone 10 mg tablet 10 mg PO TID PRN (Reason: Pain) Discontinued valsartan 160 mg tablet 160 mg PO DAILY Discharge Orders: Discharge Order (Routine); Ordered 02/15/25 Ordered By: Georges Price Diet: Advance to usual diet Activity on Discharge: As tolerated Stand Alone Forms: Patient Portal Discharge page Print Language: Kyr[place] Care Plan Goals: recovery Health Concerns: uti, low bp, sheree Plan of Treatment: stop valsartan for now because of low blood pressures, may need to restart in future if blood pressure consistently high 5 more days of ceftin, follow up urine culture, may need to change antibiotics if not sensitive Assessment: see above
[2025-02-15] MEDS: oxyCODONE HCl Immed Release 5 MG TABLET 10 MG PO (10:15)
--- NOTE | 2025-02-15 10:16 | PC.NURSE ---
oxycodone administration Pt requesting oxycodone for 8-9/10 generalized pain, Dr. Price was notified that pt requesting oxycodone and it did not match the pain scale for it to be given, Dr. Price Ok'd giving the oxycodone.
--- NOTE | 2025-02-15 14:52 | PC.NURSE ---
pt medicated per order, pt states his caregiver is supposed to return here for 3pm and he can discharge then, pharmacy called for missing medications
[2025-02-15 16:10] VITALS: BP 136/68; PULSE 86; RESP 16; TEMP 36.7; O2SAT 97
== END 2025-02-15 16:04 | disposition home or self-care (01) | DRG 315 ==
LOC: HO.ED 17:14 → HO.EDOVER 21:47
PROVIDERS: Admitting Provider Student in an Organized Health Care Education/Training Program; Emergency Provider Emergency Medicine; Visit Provider Internal Medicine
DX: I95.9 Hypotension, unspecified (principal); N17.9 Acute kidney failure, unspecified; N39.0 Urinary tract infection, site not specified; Z66 Do not resuscitate; E86.0 Dehydration; I10 Essential (primary) hypertension; L30.4 Erythema intertrigo; K21.9 Gastro-esophageal reflux disease without esophagitis; G62.9 Polyneuropathy, unspecified; Z20.822 Contact with and (suspected) exposure to COVID-19; Z79.899 Other long term (current) drug therapy
CPT/HCPCS: 36415; 71045; 74176; 80048; 80053; 81001; 82550; 83605; 83690; 83735; 85025; 87040; 87086; 87088; 87186; 87637; 93005; 99221; 99285; J0696; J1650

== ENCOUNTER → 2025-02-14 15:22 | Outpatient (BNV) | payer OTHER, SELFPAY | PROVIDERS: Emergency Provider Emergency Medicine; Visit Provider Internal Medicine | DX: I44.7 Left bundle-branch block, unspecified (principal) | CPT/HCPCS: 93010 ==

== ENCOUNTER → 2025-02-14 15:39 | Outpatient (BNV) | payer OTHER, SELFPAY | PROVIDERS: Emergency Provider Emergency Medicine; Visit Provider Radiology Diagnostic Radiology | DX: N28.1 Cyst of kidney, acquired (principal); R06.00 Dyspnea, unspecified | CPT/HCPCS: 71045; 74176 ==

== ENCOUNTER → 2025-02-14 21:44 | Outpatient (BNV) | payer OTHER, SELFPAY | PROVIDERS: Admitting Provider Student in an Organized Health Care Education/Training Program; Emergency Provider Emergency Medicine; Visit Provider Student in an Organized Health Care Education/Training Program | DX: N39.0 Urinary tract infection, site not specified (principal); N17.9 Acute kidney failure, unspecified | CPT/HCPCS: 99223; 99239 ==